=== PATIENT | female | born 1955 | race Caucasian/White ===

== ENCOUNTER 2023-10-18 09:08 | Emergency (ER) | payer MEDICARE, SELFPAY ==
[2023-10-18] VITALS (9 sets, daily range): BP systolic 122–126; BP diastolic 69–90; PULSE 71–94; RESP 14–22; TEMP 36.2; O2SAT 90–97; BMI 24.7
--- NOTE | 2023-10-18 09:36 | ED_ITS ---
HPI - General Adult General Time Seen by Provider: 09:36 Date Seen: 10/18/23 Chief complaint: Shortness of Breath/Dyspnea Stated complaint: Low O2 Time Seen by Provider: 10/18/23 09:11 Source: patient and RN notes reviewed Mode of arrival: ambulatory Limitations: no limitations History of Present Illness HPI narrative: This 68-year-old female with underlying COPD is referred to the ER by her primary provider Dr. Patel from [facility] where she was in for routine medication check-in found to be hypoxic. Her O2 sats were 88% at rest, with ambulation they went down to 80%. Patient reportedly feels her breathing has been worsening with shortness of breath for months. She did quit smoking in April of 2022 but admits she will occasionally have a cigarette. She is getting short of breath with limited activity. Denies any swelling in her legs but does state her legs will feel cold at times. They are not feeling cold now. Denies any numbness tingling in her legs. She has no chest pain, no palpitations. She is not coughing, does not feel ill, no fevers or chills. In review of her clinic note today, she has not been taking her pulmonary medications. She will use the Symbicort as a p.r.n. for wheezing, sometimes albuterol. She has not been using her Spiriva. She is aware now that she needs to use her Spiriva daily, the Symbicort scheduled twice a day and the albuterol as needed. No further workup was done in the clinic. I did discuss with her provider that we would not be able to set up home O2 out of the ER. She did fe el that the patient needed further evaluation that could not be provided in the clinic. Related Data Home Medications ?Medication ?Instructions ?Recorded ?Confirmed albuterol sulfate 90 mcg/actuation 2 puff inhalation QID PRN dyspnea 10/18/23 10/18/23 aerosol inhaler budesonide-formoterol HFA 160 2 puff inhalation BID 10/18/23 10/18/23 mcg-4.5 mcg/actuation aerosol inhaler (Symbicort) gabapentin 300 mg capsule 300 mg PO TID 10/18/23 10/18/23 mirtazapine 7.5 mg tablet 7.5 mg PO HS 10/18/23 10/18/23 tiotropium bromide 18 mcg capsule 1 cap inhalation DAILY 10/18/23 10/18/23 with inhalation device (Spiriva with HandiHaler) Allergies Allergy/AdvReac Type Severity Reaction Status Date / Time acetaminophen [From Vicodin] Allergy Verified 10/18/23 09:18 hydrocodone [From Vicodin] Allergy Verified 10/18/23 09:18 Review of Systems Status of ROS: Reports: 6 or more systems reviewed and unremarkable except as noted in History and below [facility] Medical History (Updated 10/18/23 @ 12:39 by Krysten Walls MD) Rheumatoid arthritis ?M06.9 - Rheumatoid arthritis, unspecified (ICD-10) Fibromyalgia ?M79.7 - Fibromyalgia (ICD-10) COPD (chronic obstructive pulmonary disease) ?J44.9 - Chronic obstructive pulmonary disease, unspecified (ICD-10) Social History Smoking Status: Never smoker How often do you have a drink containing alcohol: never AUDIT-C Alcohol total score: 0 Non-prescribed substance use: denies use Exam Const: Vital Signs, click to edit/add: Vital Signs - 24 hr 10/18/23 09:20 10/18/23 09:41 Temperature 97.1 F L Pulse Rate [Pulse Oximeter] 79 Respiratory Rate 22 Blood Pressure [Ri ght Upper Arm] 126/86 Pulse Oximetry 90 92 Oxygen Delivery Me thod Room Air Patient is a 68-year-old female that is alert, interactive, no apparent distress. Sclera clear, pupils equal and round. Able to speak in complete sentences, no dyspnea at rest. She is 90% at rest on arrival, does go up to 93- 95% on pulse oximetry while I am talking to her, has no oxygen on. She does dip down to 87% while I am in there but then does come back up. Again this is all at rest. Neck is supple, no jugular venous distension, no cervical adenopathy, no thyromegaly masses or nodules. Lungs have distant breath sounds, prolonged expiratory phase, no wheezing or crackles currently. CV regular rate and rhythm, do not hear any murmur, normal S1-S2, no S3-S4. Abdomen is soft, non tender, nondistended, do not feel any masses organomegaly. She has no lower extremity edema. Was ambulatory into the ER of her own accord. Documenting provider has reviewed patient's vital signs: yes Course Course ED Course: Patient is not hypoxic currently here. Her hypoxia is likely not acute, she is not currently ill. Will start with a two view chest x-ray, get appropriate labs and have her on pulse oximetry here. She has not been taking her pulmonary medicines appropriately, this could be contributing. We will do appropriate workup here but if patient is not hypoxic, will likely have to update her provider and come up with a close follow-up plan. Consideration for hospitalization as well with the reported hypoxia in clinic. Reevaluation(s) Time of Reevaluation #1: 11:13 Reevaluation #1: Have reviewed with Sarah that she needs a chest CT PE protocol. Her D-dimer is greater than 20. With ambulation, her O2 sats at best were 84%. She did not have any shortness of breath or pain with the hypoxia. It took her a while to recover with sitting on the edge of the bed to 90% with rest. Respiratory therapy will consult her. We do need to rule out pulmonary embolus at this time. Patient is likely going to need some home O2, is not likely going to be able to discharge to home at this time. Time of Reevaluation #2: 12:50 Reevaluation #2: Patient is refusing admission. Dr. Cutler has talked to the patient as well as her daughter. She does not seem to have any shortness of breath, is not short of breath when we ambulate her despite the lower oxygenation. We cannot get her set up for oxygen at this point. She needs to maximize her treatments for her COPD. Will have her follow up with her primary care outpatient. Consultations Consultation #1: Have reviewed with the hospitalist Dr. Hargrove. He will be accepting the patient. He is aware that the chest CT PE protocol needs to be done. Time: 11:21 Vital Signs Vital signs: Initial Vital Signs Temperature 97.1 F L 10/18/23 09:20 Temperature Source Temporal Artery Scan 10/18/23 09:20 Pulse Rate 79 10/18/23 09:20 Pulse Rhythm Regular 10/18/23 09:20 Respiratory Rate 22 10/18/23 09:20 Blood Pressure 126/86 10/18/23 09:20 Blood Pressure Mean 99 10/18/23 09:20 Blood Pressure Position Supine 10/18/23 09:20 Pulse Oximetry 90 05/24/24 09:20 Oxygen Delivery Method Room Air 10/18/23 09:20 Vital Signs Temperature 97.1 F L 10/18/23 09:20 Pulse Rate 79 10/18/23 09:20 Respiratory Rate 22 10/18/23 09:20 Blood Pressure 126/86 10/18/23 09:20 Pulse Oximetry 90 10/18/23 09:20 Oxygen Delivery Method Room Air 10/18/23 09:20 Temperature 97.1 F L 10/18/23 09:20 Pulse Rate 79 10/18/23 09:20 Respiratory Rate 22 10/18/23 09:20 Blood Pressure 126/86 10/18/23 09:20 Pulse Oximetry 92 10/18/23 09:41 Oxygen Delivery Method Room Air 10/18/23 09:20 Medical Decision Making Lab Data Lab results reviewed: Yes I reviewed the patient's lab results Labs: Lab Results 10/18/23 Range/Units 09:55 WBC 7.75 (4.50-11.00) K/uL RBC 4.41 (4.00-5.20) m/uL Hgb 12.4 (12.0-16.0) gm/dL Hct 39.5 (33.0-51.0) % MCV 90 (80-100) fL MCH 28 (26-34) pg MCHC 31 L (32-36) gm/dL RDW Coeff of Kaitlin 13.7 (11.5-15.5) % Plt Count 336 (140-440) K/uL Neut % (Auto) 61.2 (42.0-72.0) % Lymph % (Auto) 26.3 (20-44) % Gordon % (Auto) 9.4 (0.0-11.0) % Eos % (Auto) 2.6 (0.0-7.0) % Baso % (Auto) 0.5 (0.0-3.0) % Neut # (Auto) 4.74 (1.7-7.0) K/uL Lymph # (Auto) 2.04 (0.90-2.90) K/uL Gordon # (Auto) 0.70 (0.00-0.90) K/UL Eos # (Auto) 0.20 (0.00-0.50) K/uL Baso # (Auto) 0.04 (0.00-0.30) K/uL Abs Immat Gran (auto) 0.00 (0.00-0.30) K/uL Imm/Tot Granulo (auto) 0.0 % D-Dimer Quant (PE/DVT) > 20.00 H (0.00-0.50) ug/ml VBG pH 7.379 (7.32-7.43) VBG pCO2 46 (40-50) mmHG VBG pO2 < 30.1 (25-47) mmHG VBG HCO3 27 (21-28) mmol/L Sodium 140 (135-149) mmol/L Potassium 3.6 (3.6-5.1) mmol/L Chloride 107 (96-114) mmol/L Carbon Dioxide 27 (20-32) mmol/L Anion Gap 6 L (7-15) mEq/L BUN 22 (7-30) mg/dL Creatinine 0.7 (0.5-1.5) mg/dL Estimated Creat Clear 53.09 Estimated GFR 95 ml/min Glucose 100 (60-115) mg/dL Calcium 8.5 (8.4-10.6) mg/dL Total Bilirubin 1.0 (0.1-1.5) mg/dL AST 20 (12-35) U/L ALT 10 (4-35) U/L Alkaline Phosphatase 82 (40-150) U/L Troponin I < 0.01 L (0.01-0.04) ng/mL C-Reactive Protein 1.9 H (0.5-1.0) mg/dL NT-Pro-B Natriuret Pep 338 pg/mL Total Protein 7.9 (6.0-8.3) g/dL Albumin 4.2 (3.3-5.0) g/dL Procalcitonin 0.08 (<0.50) ng/mL Imaging Data CT scan - chest: Attestation: I have reviewed the pertinent imaging results. Radiologist's impression: Patient: SARAH PARDO Facility:?[facility] Patient ID:?[id number] Site Patient ID:?[id number]. Site :?[id number] Study:?CT-Chest Angio W/ 95CC ISOVUE-370 PE PROTOCOL-10/18/2023 11:49:41 AM Ordering Physician:Luis Antonio Bashir Final Report: Indication: Hypoxia, elevated D-dimer Technique: CT angiogram of the chest was performed for evaluation of pulmonary embolism. 95 mL of Isovue 370 intravenous contrast was administered. Comparison: Same day chest radiograph. Findings: CARDIOVASCULAR: Diagnostic quality: Contrast opacification of the pulmonary arterial circulation is adequate for assessment of pulmonary embolism. Study is not significantly limited by respiratory motion artifact. Pulmonary arteries: No filling defects to suggest pulmonary embolism. Enlarged, measuring 3.7 centimeter in diameter (4/84). Heart: No interventricular septal deviation. Normal in size. Mild coronary artery calcification. No significant valvular calcification. Pericardium: No pericardial effusion. Thoracic aorta: Mild calcification. Normal cervical branching. REMAINING CHEST: Medical devices: None. Thyroid: Normal. Lymph nodes: No supraclavicular, axillary, mediastinal, or hilar lymphadenopathy. Other mediastinal structures: No significant abnormality. Lung parenchyma: Moderate centrilobular emphysema. 5 millimeter medial right lower lobe pulmonary nodule (5/63). Airways: No significant abnormality. Pleura: No significant abnormality. Chest wall: No significant abnormality. Upper abdomen: Cholelithiasis. Musculoskeletal: Mild multilevel degenerative changes of the visualized spine. Impression: 1. No acute pulmonary embolism. 2. Enlarged main pulmonary artery, which may be seen in the setting of pulmonary hypertension. 3. 5 millimeter medial right lower lobe pulmonary nodule. Consensus guidelines for single or multiple solid lung nodules less than 6 mm, not applicable if known malignancy or immunocompromise: Low risk: No routine follow-up. High risk without suspicious morphology AND not in upper lobe: Consider CT at 12 months. High risk AND nodule(s) with suspicious morphology OR in upper lobe: Strongly consider CT at 12 months. (Devang, et al. Radiology 2017) Please note that all CT scans at this facility use dose modulation, iterative reconstruction, and/or weight-based dosing when appropriate to reduce radiation dose to as low as reasonably achievable. Dictated by Joshua Dunn MD @ 10/18/2023 12:26:27 PM (Electronic Signature) ECG Data Attestation: I personally reviewed and interpreted this ECG as follows: (Normal sinus rhythm, 70 beats per minute. Flipped T-waves V1 through V3 without any ST segment changes. No definite ischemia or infarct noted. QT corrected 480 milliseconds.) Prior ECG tracings: not available for review Discharge Plan Discharge Clinical Impression: Hypoxia COPD (chronic obstructive pulmonary disease) Qualifiers: COPD type: unspecified COPD Qualified Code(s): J44.9 - Chronic obstructive pulmonary disease, unspecified Patient Disposition: Home, Self-Care Condition: Stable Activity Level: Activity as Tolerated
--- NOTE | 2023-10-18 09:41 | CRLHL7_ITS ---
For Patients: As a result of the Century Cures Act, medical imaging exams and procedure reports are released immediately into your electronic medical record. You may view this report before your referring provider. If you have questions, please contact your health care provider. INDICATION: COPD, HYPOXIA TECHNIQUE: Chest 2 views. COMPARISON: None. FINDINGS: Cardiovascular and mediastinum: Heart size and vasculature are normal in caliber and appearance. Vascular calcifications. Lungs and pleural spaces: Hyperinflated lungs with interstitial lung markings likely related to COPD. Patchy right greater than left basilar opacities may represent atelectasis/scarring, or developing consolidation. No focal consolidation. No sign of pleural effusion. No pneumothorax. Bones and soft tissues: No significant findings. IMPRESSION: Findings of COPD with patchy right greater than left basilar opacities may represent atelectasis/scarring, or developing consolidation. Dictated by Baltazar Alves MD @ 10/18/2023 11:23:47 AM (Electronically Signed)
[2023-10-18 10:03] LABS: Basophils Absolute Auto 0.04 K/uL (0.00-0.30); Basophils Percent Auto 0.5 % (0.0-3.0); Eosinophils Percent Auto 2.6 % (0.0-7.0); Hematocrit 39.5 % (33.0-51.0); Hemoglobin* 12.4 gm/dL (12.0-16.0); Lymphocytes Absolute Auto 2.04 K/uL (0.90-2.90); Lymphocytes Percent Auto 26.3 % (20-44); Mean Corpuscular HGB Conc 31 gm/dL (32-36); Mean Corpuscular Hemoglobin 28 pg (26-34); Mean Corpuscular Volume 90 fL (80-100); Monocytes Percent Auto 9.4 % (0.0-11.0); Neutrophils Absolute Auto 4.74 K/uL (1.7-7.0); Neutrophils Percent Auto 61.2 % (42.0-72.0); Platelet Count* 336 K/uL (140-440); RDW Coefficient of Variation % 13.7 % (11.5-15.5); Red Blood Count 4.41 m/uL (4.00-5.20); White Blood Count* 7.75 K/uL (4.50-11.00)
[2023-10-18 10:04] LABS: HCO3 VBG 27 mmol/L (21-28); PCO2 VBG 46 mmHG (40-50); PO2 VBG < 30.1 mmHG (25-47); pH VBG 7.379 (7.32-7.43)
[2023-10-18 10:06] LABS: Slide Review Reflex No
[2023-10-18 10:22] LABS: Chloride* 107 mmol/L (96-114)
[2023-10-18 10:23] LABS: Albumin* 4.2 g/dL (3.3-5.0); Potassium* 3.6 mmol/L (3.6-5.1); Sodium* 140 mmol/L (135-149)
[2023-10-18 10:25] LABS: Creatinine* 0.7 mg/dL (0.5-1.5); Est. Creatinine Clearance* 53.09; Estimated Glomerular Filt Rate 95 ml/min
[2023-10-18 10:26] LABS: Alanine Aminotransferase* 10 U/L (4-35); Alkaline Phosphatase* 82 U/L (40-150); Anion Gap 6 mEq/L (7-15); Aspartate Amino Transferase* 20 U/L (12-35); Blood Urea Nitrogen* 22 mg/dL (7-30); Carbon Dioxide* 27 mmol/L (20-32); Glucose* 100 mg/dL (60-115); Total Protein* 7.9 g/dL (6.0-8.3)
[2023-10-18 10:27] LABS: Calcium* 8.5 mg/dL (8.4-10.6)
[2023-10-18 10:29] LABS: C Reactive Protein* 1.9 mg/dL (0.5-1.0)
[2023-10-18 10:43] LABS: Procalcitonin* 0.08 ng/mL (<0.50)
[2023-10-18 10:44] LABS: NT Pro B Type NatriureticPept* 338 pg/mL; Troponin I* < 0.01 ng/mL (0.01-0.04)
[2023-10-18 11:08] LABS: D Dimer Quantitative* > 20.00 ug/ml (0.00-0.50)
--- NOTE | 2023-10-18 11:12 | CRLHL7_ITS ---
For Patients: As a result of the Century Cures Act, medical imaging exams and procedure reports are released immediately into your electronic medical record. You may view this report before your referring provider. If you have questions, please contact your health care provider. Indication: Hypoxia, elevated D-dimer Technique: CT angiogram of the chest was performed for evaluation of pulmonary embolism. 95 mL of Isovue 370 intravenous contrast was administered. Comparison: Same day chest radiograph. Findings: CARDIOVASCULAR: Diagnostic quality: Contrast opacification of the pulmonary arterial circulation is adequate for assessment of pulmonary embolism. Study is not significantly limited by respiratory motion artifact. Pulmonary arteries: No filling defects to suggest pulmonary embolism. Enlarged, measuring 3.7 centimeter in diameter (4/84). Heart: No interventricular septal deviation. Normal in size. Mild coronary artery calcification. No significant valvular calcification. Pericardium: No pericardial effusion. Thoracic aorta: Mild calcification. Normal cervical branching. REMAINING CHEST: Medical devices: None. Thyroid: Normal. Lymph nodes: No supraclavicular, axillary, mediastinal, or hilar lymphadenopathy. Other mediastinal structures: No significant abnormality. Lung parenchyma: Moderate centrilobular emphysema. 5 millimeter medial right lower lobe pulmonary nodule (5/63). Airways: No significant abnormality. Pleura: No significant abnormality. Chest wall: No significant abnormality. Upper abdomen: Cholelithiasis. Musculoskeletal: Mild multilevel degenerative changes of the visualized spine. Impression: 1. No acute pulmonary embolism. 2. Enlarged main pulmonary artery, which may be seen in the setting of pulmonary hypertension. 3. 5 millimeter medial right lower lobe pulmonary nodule. Consensus guidelines for single or multiple solid lung nodules less than 6 mm, not applicable if known malignancy or immunocompromise: Low risk: No routine follow-up. High risk without suspicious morphology AND not in upper lobe: Consider CT at 12 months. High risk AND nodule(s) with suspicious morphology OR in upper lobe: Strongly consider CT at 12 months. (Devang, et al. Radiology 2017) Please note that all CT scans at this facility use dose modulation, iterative reconstruction, and/or weight-based dosing when appropriate to reduce radiation dose to as low as reasonably achievable. Dictated by Joshua Dunn MD @ 10/18/2023 12:26:27 PM (Electronically Signed)
--- NOTE | 2023-10-18 13:03 | P.IMCN_ITS ---
Date of Consult Patient: Dina Patient Consult date: 10/18/23 Requesting Physician: Other (Emergency department) Primary Care Provider: Fani Patel MD Consult Narrative Narrative: Sarah Gutiérrez is a 68 year old female with COPD who was seen in clinic this morning and referred to the emergency room because of hypoxia. Notes from the clinic indicate that she was having oxygen saturation of 80% on rest and dropped to 80% with ambulation. She presents the emergency room where she is 90-91% at rest and drops to 84% with activity. She reports otherwise feeling fine. She has not had recent illness, cold, cough, fever. She is using her inhalers, Spiriva and Symbicort as needed rather than scheduled. Evaluation in the emergency room was unremarkable except for a chest CTA which showed a 5 mm medial right lower lobe pulmonary nodule, emphysema, no pulmonary embolism, enlarged main pulmonary artery. I was called to see the patient for admission for hypoxia. When I saw the patient she declined admission to the hospital. She did say she was interested in getting supplemental oxygen but I explained to her that she would either have to be admitted to the hospital or talk to her Clinic DrAlexander. Supplemental oxygen could not be arranged through the emergency department. At the time I am seeing her her O2 sat is 91% on room air and she is breathing comfortably. I am not c ertain that she qualifies for oxygen norm I certain that she needs it if she is taking her COPD inhaler therapies as scheduled. She has declined admission and wants to return home. I also discussed this with her daughter. [facility] Medical History (Updated 10/18/23 @ 13:09 by Roberto Hargrove MD) Rheumatoid arthritis ?M06.9 - Rheumatoid arthritis, unspecified (ICD-10) Fibromyalgia ?M79.7 - Fibromyalgia (ICD-10) COPD (chronic obstructive pulmonary disease) ?J44.9 - Chronic obstructive pulmonary disease, unspecified (ICD-10) Social History Smoking Status: Never smoker How often do you have a drink containing alcohol: never AUDIT-C Alcohol total score: 0 Non-prescribed substance use: denies use Meds Home Medications and Allergies Home Medications ?Medication ?Instructions ?Recorded ?Confirmed ?Type albuterol sulfate 90 mcg/actuation 2 puff inhalation QID PRN dyspnea 10/18/23 10/18/23 History aerosol inhaler budesonide-formoterol HFA 160 2 puff inhalation BID 10/18/23 10/18/23 History mcg-4.5 mcg/actuation aerosol inhaler (Symbicort) gabapentin 300 mg capsule 300 mg PO TID 10/18/23 10/18/23 History mirtazapine 7.5 mg tablet 7.5 mg PO HS 10/18/23 10/18/23 History tiotropium bromide 18 mcg capsule 1 cap inhalation DAILY 10/18/23 10/18/23 History with inhalation device (Spiriva with HandiHaler) Allergies Allergy/AdvReac Type Severity Reaction Status Date / Time acetaminophen [From Vicodin] Allergy Verified 10/18/23 09:18 hydrocodone [From Vicodin] Allergy Verified 10/18/23 09:18 Exam Const: Vital Signs, click to edit/add: Vital Signs - 24 hr 10/18/23 09:20 10/18/23 09:32 10/18/23 09:41 Temperature 97.1 F L Pulse Rate 77 Pulse Rate [Pulse Oximeter] 79 Respiratory Rate 22 14 Blood Pressure 122/86 Blood Pressure [Ri ght Upper Arm] 126/86 Pulse Oximetry 90 92 92 Oxygen Delivery Me thod Room Air 10/18/23 10:02 10/18/23 11:15 10/18/23 11:32 Temperature Pulse Rate 77 77 71 Pulse Rate [Pulse Oximeter] Respiratory Rate 16 14 Blood Pressure 123/69 126/80 Blood Pressure [Ri ght Upper Arm] Pulse Oximetry 92 91 97 Oxygen Delivery Me thod 10/18/23 12:31 10/18/23 12:45 Temperature Pulse Rate 74 74 Pulse Rate [Pulse Oximeter] Respiratory Rate 14 Blood Pressure 124/90 H Blood Pressure [Ri ght Upper Arm] Pulse Oximetry 92 90 Oxygen Delivery Me thod Room Air Labs Labs: Short CBC 10/18/23 Range/Units 09:55 WBC 7.75 (4.50-11.00) K/uL Hgb 12.4 (12.0-16.0) gm/dL Hct 39.5 (33.0-51.0) % Plt Count 336 (140-440) K/uL BMP 10/18/23 09:55 Sodium 140 Potassium 3.6 Chloride 107 Carbon Dioxide 27 BUN 22 Creatinine 0.7 Glucose 100 Calcium 8.5 Cardiac Enzymes 05/24/24 Range/Units 09:55 Troponin I < 0.01 L (0.01-0.04) ng/mL Liver Function 10/18/23 Range/Units 09:55 Total Bilirubin 1.0 (0.1-1.5) mg/dL AST 20 (12-35) U/L ALT 10 (4-35) U/L Alkaline Phosphatase 82 (40-150) U/L Albumin 4.2 (3.3-5.0) g/dL Assessment and Plan Assessment and plan (1) COPD (chronic obstructive pulmonary disease): Problem comment: Moderately severe, stable Status: Acute (2) Hypoxia: Problem comment: Reassess hypoxia at outpatient follow-up and consider outpatient oxygen prescription if indicated Status: Acute Plan Patient will be discharged from the emergency department at her request for outpatient follow-up. Resume medications as prescribed by her doctor.. Total Time Spent Total Time Spent: 25 minutes spent in coordination of care and discussing with patient, her daughter and other providers management of hypoxia and COPD
== END 2023-10-18 13:12 | disposition home or self-care (01) ==
LOC: ED 12:39 → MEDSURG 12:50
PROVIDERS: Emergency Provider Family Medicine; PCP Family Medicine
DX: R09.02 Hypoxemia (principal); J44.9 Chronic obstructive pulmonary disease, unspecified
CPT/HCPCS: 36415; 71046; 71275; 80053; 82803; 83880; 84145; 84484; 85025; 85379; 86140; 93005; 94761; 99285; Q9967

== ENCOUNTER 2024-03-27 19:21 | Observation (INO) | payer MEDICARE, SELFPAY ==
[2024-03-27] VITALS (13 sets, daily range): BP systolic 111–135; BP diastolic 73–98; PULSE 88–110; RESP 16–24; TEMP 37.3; O2SAT 84–92; BMI 24.9; BMI 25.0
--- NOTE | 2024-03-27 19:37 | CRLHL7_ITS ---
For Patients: As a result of the Century Cures Act, medical imaging exams and procedure reports are released immediately into your electronic medical record. You may view this report before your referring provider. If you have questions, please contact your health care provider. INDICATION: Left-sided mallet the throat pain. Possible swelling. COMPARISON: None. TECHNIQUE: CT soft tissue neck with IV contrast. ICD 370, 90 cc. FINDINGS: Normal bilateral parotid and submandibular glands. Normal thyroid gland. Scattered small normal-sized cervical lymph nodes bilaterally. No supraclavicular or superior mediastinal adenopathy. Nasopharynx and oropharynx are clear. No inflammation within the parapharyngeal fat pads or retropharyngeal space. Normal thickness of the epiglottis. Normal glottis was symmetric vocal cords. Emphysematous changes in the upper lungs. Normal alignment of the cervical spine. No prevertebral soft tissue swelling. Edentulous mandible and maxilla. Normal articulation at the bilateral temporomandibular joints with moderate degenerative changes. Normal orbits bilaterally. Fluid mucosal thickening of the left sphenoid sinus. Remaining visualized paranasal sinuses mastoid air cells are clear. IMPRESSION: 1. No adenopathy. 2. Normal deep soft tissues of the neck. 3. Emphysematous changes in the upper lungs. 4. Moderate degenerative at the bilateral temporomandibular joints Please note that all CT scans at this facility use dose modulation, iterative reconstruction, and/or weight-based dosing when appropriate to reduce radiation dose to as low as reasonably achievable. Dictated by Andres Tang MD @ 03/27/2024 8:17:35 PM (Electronically Signed)
--- NOTE | 2024-03-27 19:40 | ED.GENADULT ---
HPI - General Adult General Date Seen: 03/27/24 <Janusz Vallecillo - Last Filed: 03/27/24 21:02> Chief complaint: Allergic Reaction <Janusz Hensleyram DO - Last Filed: 03/27/24 21:02> Stated complaint: allergic reaction, worried throat will swell shut <Janusz Vallecillo - Last Filed: 03/27/24 21:02> Time Seen by Provider: 03/27/24 19:23 <Janusz Vallecillo DO - Last Filed: 03/27/24 21:02> Source: patient <Janusz Vallecillo - Last Filed: 03/27/24 21:02> Mode of arrival: ambulatory <Janusz Vallecillo - Last Filed: 03/27/24 21:02> Limitations: no limitations <Janusz Vallecillo - Last Filed: 03/27/24 21:02> History of Present Illness HPI narrative: Patient is a 68-year-old female with a history of rheumatoid arthritis and COPD presenting to emergency department with her daughter for concerns of allergic reaction. Two days ago she took methotrexate, vitamin-D and folic acid for the 1st time for rheumatoid arthritis. States she started having sensation of tongue swelling last night. She states feels like she can not move her tongue to the left but does also state part of that is because she has having pain to left side of her jaw and hurts when she moves her tongue that way. Her daughter thinks the patient's voice sounds different. She does have a petechial appearing rash on her neck and chin that her daughter states was not there yesterday. Patient was not aware of it. She denies chest pain or any worsening shortness of breath. She has a COPD patient. Has been able to swallow but does state it hurts when she swallows. Went to urgent care initially and then was told to come to emergency department for evaluation. Denies fevers, chills, weakness, lightheadedness, dizziness, abdominal pain, chest pain, shortness of breath. No other concerns noted at this time. Denies symptoms like this previously. Has not noticed any swelling below her tongue. <Janusz Vallecillo DO - Last Filed: 03/27/24 21:02> Related Data Home medications: Home Medications ?Medication ?Instructions ?Recorded ?Confirmed albuterol sulfate 90 mcg/actuation 2 puff inhalation QID PRN dyspnea 10/18/23 03/27/24 aerosol inhaler budesonide-formoterol HFA 160 2 puff inhalation BID 10/18/23 03/27/24 mcg-4.5 mcg/actuation aerosol inhaler (Symbicort) gabapentin 300 mg capsule 300 mg PO TID 10/18/23 03/27/24 mirtazapine 7.5 mg tablet 15 mg PO HS 10/18/23 03/27/24 tiotropium bromide 18 mcg capsule 1 cap inhalation DAILY 10/18/23 03/27/24 with inhalation device (Spiriva with HandiHaler) cholecalciferol (vitamin D3) 1,250 1,250 mcg PO .weekly 03/27/24 03/27/24 mcg (50,000 unit) capsule folic acid 1 mg tablet 1 mg PO DAILY 03/27/24 03/27/24 methotrexate sodium 2.5 mg tablet 15 mg PO .weekly 03/27/24 03/27/24 <Janusz Vallecillo DO - Last Filed: 03/27/24 21:02> Allergies/adverse reactions: Allergies Allergy/AdvReac Type Severity Reaction Status Date / Time hydrocodone (From Vicodin) Allergy Verified 03/27/24 19:56 <Janusz Vallecillo DO - Last Filed: 03/27/24 21:02> Review of Systems Status of ROS: Reports: 10 or more systems reviewed and unremarkable except as noted in History and below <Janusz Vallecillo DO - Last Filed: 03/27/24 21:02> [facility] Medical History: Medical History Rheumatoid arthritis ?M06.9 - Rheumatoid arthritis, unspecified (ICD-10) Fibromyalgia ?M79.7 - Fibromyalgia (ICD-10) COPD (chronic obstructive pulmonary disease) ?J44.9 - Chronic obstructive pulmonary disease, unspecified (ICD-10) <Janusz Vallecillo DO - Last Filed: 03/27/24 21:02> Social History: Social History Smoking Status: Never smoker Second hand tobacco smoke exposure: No How often do you have a drink containing alcohol: never AUDIT-C Alcohol total score: 0 Non-prescribed substance use: denies use <Janusz Vallecillo DO - Last Filed: 03/27/24 21:02> Exam Narrative: Exam Narrative: Const: Well-nourished, Well-developed, in mild distress Eyes: PERRL, no conjunctival injection, and symmetrical lids HENT: Atraumatic external nose and ears. Moist mucous membranes. Tenderness noted to the mucosal membrane her mouth just anterior to where tooth 22 would be. No tenderness to the teeth or gum line though. No swelling noted underneath her tongue. Does. If erythematous oropharynx. Tonsils were not adequately visualize but uvula is midline Neck: Symmetric, trachea midline, No thyromegaly. CVS: RRR, No murmurs or gallops. Peripheral pulses 2+ and equal in all extremities RESP: Unlabored respiratory effort. Clear to auscultation bilaterally. GI: Nontender/Nondistended, No rebound or guarding. MSK:Extremities w/o deformity, Normal Active ROM Skin: Petechial rash noted to chin and neck worse on the right side Neuro: Normal Muscle tone, No focal neurological deficits. Psych: Awake, Alert, & Oriented x3. Appropriate mood and affect. <Janusz Vallecillo DO - Last Filed: 03/27/24 21:02> Const: Vital Signs, click to edit/add: Vital Signs - 24 hr 03/27/24 19:29 03/27/24 20:06 03/27/24 20:31 Temperature 99.2 F Pulse Rate 110 H 98 Pulse Rate [Pulse Oximeter] 99 Respiratory Rate 20 20 18 Blood Pressure 135/98 H 112/73 Blood Pressure [Le ft Upper Arm] 131/82 Pulse Oximetry 90 89 87 L Oxygen Delivery Me thod Room Air Oxygen Flow Rate 03/27/24 20:45 03/27/24 20:53 03/27/24 21:09 Temperature Pulse Rate 98 100 Pulse Rate [Pulse Oximeter] Respiratory Rate 18 Blood Pressure Blood Pressure [Le ft Upper Arm] Pulse Oximetry 84 L 91 90 Oxygen Delivery Me thod Room Air Nasal Cannula Oxygen Flow Rate 1 03/27/24 21:15 03/27/24 21:22 Temperature Pulse Rate 101 H Pulse Rate [Pulse Oximeter] Respiratory Rate Blood Pressure Blood Pressure [Le ft Upper Arm] Pulse Oximetry 87 L 90 Oxygen Delivery Me thod Nasal Cannula Oxygen Flow Rate 1 <Janusz Vallecillo DO - Last Filed: 03/27/24 21:02> Vital Signs, click to edit/add: Vital Signs - 24 hr 03/27/24 19:29 03/27/24 20:06 03/27/24 20:31 Temperature 99.2 F Pulse Rate 110 H 98 Pulse Rate [Pulse Oximeter] 99 Respiratory Rate 20 20 18 Blood Pressure 135/98 H 112/73 Blood Pressure [Le ft Upper Arm] 131/82 Pulse Oximetry 90 89 87 L Oxygen Delivery Me thod Room Air Oxygen Flow Rate 03/27/24 20:45 03/27/24 20:53 03/27/24 21:09 Temperature Pulse Rate 98 100 Pulse Rate [Pulse Oximeter] Respiratory Rate 18 Blood Pressure Blood Pressure [Le ft Upper Arm] Pulse Oximetry 84 L 91 90 Oxygen Delivery Me thod Room Air Nasal Cannula Oxygen Flow Rate 1 03/27/24 21:15 03/27/24 21:22 Temperature Pulse Rate 101 H Pulse Rate [Pulse Oximeter] Respiratory Rate Blood Pressure Blood Pressure [Le ft Upper Arm] Pulse Oximetry 87 L 90 Oxygen Delivery Me thod Nasal Cannula Oxygen Flow Rate 1 <Krysten Walls MD - Last Filed: 03/27/24 21:40> Course Consultations Consultation #1: I have called Dr. Zapata to let him know that the VBG and chest CT have been read. He will follow-up all findings on the chest CT with patient, we did review the venous blood gas. Did review that she is 90% on 1 L nasal cannula oxygen. I was asked by my partner before he left to just make sure the hospitalist was aware when these tests were back which has been done. <Krysten Walls MD - Last Filed: 03/27/24 21:40> Time: 21:39 <Krysten Walls MD - Last Filed: 03/27/24 21:40> Vital Signs Vital signs: Initial Vital Signs Temperature 99.2 F 03/27/24 19:29 Temperature Source Temporal Artery Scan 03/27/24 19:29 Pulse Rate 99 03/27/24 19:29 Respiratory Rate 20 03/27/24 19:29 Blood Pressure 131/82 03/27/24 19:29 Blood Pressure Mean 98 03/27/24 19:29 Blood Pressure Position Sitting 03/27/24 19:29 Pulse Oximetry 90 03/27/24 19:29 Oxygen Delivery Method Room Air 03/27/24 19:29 Vital Signs Temperature 99.2 F 03/27/24 19:29 Pulse Rate 99 03/27/24 19:29 Respiratory Rate 20 03/27/24 19:29 Blood Pressure 131/82 03/27/24 19:29 Pulse Oximetry 90 03/27/24 19:29 Oxygen Delivery Method Room Air 03/27/24 19:29 Temperature 99.2 F 03/27/24 19:29 Pulse Rate 101 H 03/27/24 21:15 Respiratory Rate 18 03/27/24 20:45 Blood Pressure 112/73 03/27/24 20:31 Pulse Oximetry 90 03/27/24 21:22 Oxygen Delivery Method Nasal Cannula 03/27/24 21:22 Oxygen Flow Rate 1 03/27/24 21:22 <Janusz Vallecillo, DO - Last Filed: 03/27/24 21:02> Initial Vital Signs Temperature 99.2 F 03/27/24 19:29 Temperature Source Temporal Artery Scan 03/27/24 19:29 Pulse Rate 99 03/27/24 19:29 Respiratory Rate 20 03/27/24 19:29 Blood Pressure 131/82 03/27/24 19:29 Blood Pressure Mean 98 03/27/24 19:29 Blood Pressure Position Sitting 03/27/24 19:29 Pulse Oximetry 90 03/27/24 19:29 Oxygen Delivery Method Room Air 03/27/24 19:29 Vital Signs Temperature 99.2 F 03/27/24 19:29 Pulse Rate 99 03/27/24 19:29 Respiratory Rate 20 03/27/24 19:29 Blood Pressure 131/82 03/27/24 19:29 Pulse Oximetry 90 03/27/24 19:29 Oxygen Delivery Method Room Air 03/27/24 19:29 Temperature 99.2 F 03/27/24 19:29 Pulse Rate 101 H 03/27/24 21:15 Respiratory Rate 18 03/27/24 20:45 Blood Pressure 112/73 03/27/24 20:31 Pulse Oximetry 90 03/27/24 21:22 Oxygen Delivery Method Nasal Cannula 03/27/24 21:22 Oxygen Flow Rate 1 03/27/24 21:22 <Krysten Walls MD - Last Filed: 03/27/24 21:40> Medications Administered Medications: Discontinued Medications Generic Name Dose Route Start Last Admin Trade Name Freq PRN Reason Stop Dose Admin Epinephrine HCl 0.3 mg 03/27/24 19:37 03/27/24 19:45 Epinephrine 0.3 Mg Pen IM 03/27/24 19:38 0.3 mg ONCE ONE Administration Methylprednisolone Sodium Succinate 125 mg 03/27/24 19:37 03/27/24 19:45 Methylprednisolone Sod Succ 62.5 Mg/Ml (125) IVP 03/27/24 19:38 125 mg ONCE ONE Administration <Janusz Vallecillo DO - Last Filed: 03/27/24 21:02> Discontinued Medications Generic Name Dose Route Start Last Admin Trade Name Freq PRN Reason Stop Dose Admin Epinephrine HCl 0.3 mg 03/27/24 19:37 03/27/24 19:45 Epinephrine 0.3 Mg Pen IM 03/27/24 19:38 0.3 mg ONCE ONE Administration Methylprednisolone Sodium Succinate 125 mg 03/27/24 19:37 03/27/24 19:45 Methylprednisolone Sod Succ 62.5 Mg/Ml (125) IVP 03/27/24 19:38 125 mg ONCE ONE Administration <Krysten Walls MD - Last Filed: 03/27/24 21:40> Medical Decision Making MDM Narrative Medical decision making narrative: Patient is a 68-year-old female presenting for concerns of an allergic reaction. She has no family history of angioedema so her auditory angioedema seems less likely. Also do not even notice any swelling in her oropharynx so overall medication induced angioedema does not seem likely. It is not clear she is having allergic reaction this time as when I ask her work tongue swelling she states she thinks swollen because she can not move it to left also states that she does not move it to the left because the inside of her mouth hurts when she moves her tongue and touches it. She also has a rash on her face but this rash is petechial no urticaria. Symptoms are not really consistent with a allergic reaction at this time but I will give her epi and Solu-Medrol just in case. Nose do a COVID/flu/RSV swab as her oropharynx is erythematous and I will also do a strep swab. I do not see any obvious lesions on the inside of her mouth or signs of prostatitis or salivary stones live will do CT scan just to rule out any other abnormality says she does have a hoarse voice right now. Lab work returned showing no concerning abnormalities. CT scan reviewed myself the radiologist shows no acute concerning abnormalities. There is no signs of deep neck space issues. No signs of swelling of the larynx or airway compromise. Patient had no improvement in her symptoms with the epi and Solu-Medrol. Her symptoms all seem much more consistent with a viral pharyngitis than any kind of allergic reaction. Will continue to monitor while we wait for the COVID and strep swab to return though. Power of monitoring the patient she became hypoxic about 83. Dizzy to her long he did have poor air movements. She states she feels like she is at her baseline. I did have her use her home Symbicort which she states she uses frequently and I will order a chest CT to make sure were not missing any possible pneumonia. Symbicort do not seem to improve her symptoms at all. While we wait for CT scan I did speak to the hospitalist who would like to see the CT scan results and the blood gas before admission. <Janusz Vallecillo, - Last Filed: 03/27/24 21:02> Lab Data Labs: Lab Results 03/27/24 03/27/24 03/27/24 Range/Units 19:40 19:45 20:07 WBC 10.94 (4.50-11.00) K/uL RBC 4.49 (4.00-5.20) m/uL Hgb 12.4 (12.0-16.0) gm/dL Hct 40.1 (33.0-51.0) % MCV 89 (80-100) fL MCH 28 (26-34) pg MCHC 31 L (32-36) gm/dL RDW Coeff of Kaitlin 14.5 (11.5-15.5) % Plt Count 300 (140-440) K/uL Neut % (Auto) 79.6 H (42.0-72.0) % Lymph % (Auto) 14.2 L (20-44) % [place] % (Auto) 4.9 (0.0-11.0) % Eos % (Auto) 0.8 (0.0-7.0) % Baso % (Auto) 0.4 (0.0-3.0) % Neut # (Auto) 8.70 H (1.7-7.0) K/uL Lymph # (Auto) 1.60 (0.90-2.90) K/uL [place] # (Auto) 0.50 (0.00-0.90) K/UL Eos # (Auto) 0.09 (0.00-0.50) K/uL Baso # (Auto) 0.04 (0.00-0.30) K/uL Abs Immat Gran (auto) 0.01 (0.00-0.30) K/uL Imm/Tot Granulo (auto) 0.1 % VBG pH (7.32-7.43) VBG pCO2 (40-50) mmHG VBG pO2 (25-47) mmHG VBG HCO3 (21-28) mmol/L Sodium 135 (135-149) mmol/L Potassium 3.4 L (3.6-5.1) mmol/L Chloride 103 (96-114) mmol/L Carbon Dioxide 23 (20-32) mmol/L Anion Gap 9 (7-15) mEq/L BUN 16 (7-30) mg/dL Creatinine 0.7 (0.5-1.5) mg/dL Estimated Creat Clear 55.07 Estimated GFR 95 ml/min Glucose 110 (60-115) mg/dL Calcium 8.7 (8.4-10.6) mg/dL Magnesium 1.9 (1.5-2.6) mg/dL SARS-CoV-2 (PCR) Negative SARS-CoV-2 (Negative) Influenza Type A (PCR) Negative PCR FLU A (Negative) Influenza Type B (PCR) Negative PCR FLU B (Negative) RSV (PCR) Negative PCR RSV (Negative) Group A Strep DNA NOT DETECTED (Not Detectd) Lab Acknowledgement POC Creatinine 0.7 (0.6-1.3) mg/dl POC Troponin I 0.00 L (0.01-0.04) ng/ml 03/27/24 03/27/24 Range/Units 20:59 21:16 WBC (4.50-11.00) K/uL RBC (4.00-5.20) m/uL Hgb (12.0-16.0) gm/dL Hct (33.0-51.0) % MCV (80-100) fL MCH (26-34) pg MCHC (32-36) gm/dL RDW Coeff of Kaitlin (11.5-15.5) % Plt Count (140-440) K/uL Neut % (Auto) (42.0-72.0) % Lymph % (Auto) (20-44) % [place] % (Auto) (0.0-11.0) % Eos % (Auto) (0.0-7.0) % Baso % (Auto) (0.0-3.0) % Neut # (Auto) (1.7-7.0) K/uL Lymph # (Auto) (0.90-2.90) K/uL [place] # (Auto) (0.00-0.90) K/UL Eos # (Auto) (0.00-0.50) K/uL Baso # (Auto) (0.00-0.30) K/uL Abs Immat Gran (auto) (0.00-0.30) K/uL Imm/Tot Granulo (auto) % VBG pH 7.447 H (7.32-7.43) VBG pCO2 34 L (40-50) mmHG VBG pO2 44.9 (25-47) mmHG VBG HCO3 23 (21-28) mmol/L Sodium (135-149) mmol/L Potassium (3.6-5.1) mmol/L Chloride (96-114) mmol/L Carbon Dioxide (20-32) mmol/L Anion Gap (7-15) mEq/L BUN (7-30) mg/dL Creatinine (0.5-1.5) mg/dL Estimated Creat Clear Estimated GFR ml/min Glucose (60-115) mg/dL Calcium (8.4-10.6) mg/dL Magnesium (1.5-2.6) mg/dL SARS-CoV-2 (PCR) (Negative) Influenza Type A (PCR) (Negative) Influenza Type B (PCR) (Negative) RSV (PCR) (Negative) Group A Strep DNA (Not Detectd) Lab Acknowledgement New Spec Needed POC Creatinine (0.6-1.3) mg/dl POC Troponin I (0.01-0.04) ng/ml <Janusz Broderick Vallecillo, DO - Last Filed: 03/27/24 21:02> Lab Results 03/27/24 03/27/24 03/27/24 Range/Units 19:40 19:45 20:07 WBC 10.94 (4.50-11.00) K/uL RBC 4.49 (4.00-5.20) m/uL Hgb 12.4 (12.0-16.0) gm/dL Hct 40.1 (33.0-51.0) % MCV 89 (80-100) fL MCH 28 (26-34) pg MCHC 31 L (32-36) gm/dL RDW Coeff of Kaitlin 14.5 (11.5-15.5) % Plt Count 300 (140-440) K/uL Neut % (Auto) 79.6 H (42.0-72.0) % Lymph % (Auto) 14.2 L (20-44) % [place] % (Auto) 4.9 (0.0-11.0) % Eos % (Auto) 0.8 (0.0-7.0) % Baso % (Auto) 0.4 (0.0-3.0) % Neut # (Auto) 8.70 H (1.7-7.0) K/uL Lymph # (Auto) 1.60 (0.90-2.90) K/uL [place] # (Auto) 0.50 (0.00-0.90) K/UL Eos # (Auto) 0.09 (0.00-0.50) K/uL Baso # (Auto) 0.04 (0.00-0.30) K/uL Abs Immat Gran (auto) 0.01 (0.00-0.30) K/uL Imm/Tot Granulo (auto) 0.1 % VBG pH (7.32-7.43) VBG pCO2 (40-50) mmHG VBG pO2 (25-47) mmHG VBG HCO3 (21-28) mmol/L Sodium 135 (135-149) mmol/L Potassium 3.4 L (3.6-5.1) mmol/L Chloride 103 (96-114) mmol/L Carbon Dioxide 23 (20-32) mmol/L Anion Gap 9 (7-15) mEq/L BUN 16 (7-30) mg/dL Creatinine 0.7 (0.5-1.5) mg/dL Estimated Creat Clear 55.07 Estimated GFR 95 ml/min Glucose 110 (60-115) mg/dL Calcium 8.7 (8.4-10.6) mg/dL Magnesium 1.9 (1.5-2.6) mg/dL SARS-CoV-2 (PCR) Negative SARS-CoV-2 (Negative) Influenza Type A (PCR) Negative PCR FLU A (Negative) Influenza Type B (PCR) Negative PCR FLU B (Negative) RSV (PCR) Negative PCR RSV (Negative) Group A Strep DNA NOT DETECTED (Not Detectd) Lab Acknowledgement POC Creatinine 0.7 (0.6-1.3) mg/dl POC Troponin I 0.00 L (0.01-0.04) ng/ml 03/27/24 03/27/24 Range/Units 20:59 21:16 WBC (4.50-11.00) K/uL RBC (4.00-5.20) m/uL Hgb (12.0-16.0) gm/dL Hct (33.0-51.0) % MCV (80-100) fL MCH (26-34) pg MCHC (32-36) gm/dL RDW Coeff of Kaitlin (11.5-15.5) % Plt Count (140-440) K/uL Neut % (Auto) (42.0-72.0) % Lymph % (Auto) (20-44) % [place] % (Auto) (0.0-11.0) % Eos % (Auto) (0.0-7.0) % Baso % (Auto) (0.0-3.0) % Neut # (Auto) (1.7-7.0) K/uL Lymph # (Auto) (0.90-2.90) K/uL [place] # (Auto) (0.00-0.90) K/UL Eos # (Auto) (0.00-0.50) K/uL Baso # (Auto) (0.00-0.30) K/uL Abs Immat Gran (auto) (0.00-0.30) K/uL Imm/Tot Granulo (auto) % VBG pH 7.447 H (7.32-7.43) VBG pCO2 34 L (40-50) mmHG VBG pO2 44.9 (25-47) mmHG VBG HCO3 23 (21-28) mmol/L Sodium (135-149) mmol/L Potassium (3.6-5.1) mmol/L Chloride (96-114) mmol/L Carbon Dioxide (20-32) mmol/L Anion Gap (7-15) mEq/L BUN (7-30) mg/dL Creatinine (0.5-1.5) mg/dL Estimated Creat Clear Estimated GFR ml/min Glucose (60-115) mg/dL Calcium (8.4-10.6) mg/dL Magnesium (1.5-2.6) mg/dL SARS-CoV-2 (PCR) (Negative) Influenza Type A (PCR) (Negative) Influenza Type B (PCR) (Negative) RSV (PCR) (Negative) Group A Strep DNA (Not Detectd) Lab Acknowledgement New Spec Needed POC Creatinine (0.6-1.3) mg/dl POC Troponin I (0.01-0.04) ng/ml <Krysten Walls MD - Last Filed: 03/27/24 21:40> ECG Data Attestation: I personally reviewed and interpreted this ECG as follows: <Janusz Vallecillo DO - Last Filed: 03/27/24 21:02> Prior ECG tracings: available for review <Janusz Vallecillo DO - Last Filed: 03/27/24 21:02> Interpretation: Normal sinus rhythm with a first-degree AV block. No ST or T-wave abnormalities. Normal axis, normal intervals. Appears similar previous EKG on file. Of note there is few areas of notable artifact so it is hard to definitively read the EKG. <Janusz Vallecillo DO - Last Filed: 03/27/24 21:02> Discharge Plan Discharge Clinical Impression: Hypoxia Pharyngitis Qualifiers: Pharyngitis/tonsillitis etiology: unspecified etiology Qualified Code(s): J02.9 - Acute pharyngitis, unspecified COPD (chronic obstructive pulmonary disease) Qualifiers: COPD type: unspecified COPD Qualified Code(s): J44.9 - Chronic obstructive pulmonary disease, unspecified <Janusz Vallecillo DO - Last Filed: 03/27/24 21:02> Patient Disposition: Admitted As Observation <Janusz Vallecillo DO - Last Filed: 03/27/24 21:02> Condition: Stable <Janusz Vallecillo DO - Last Filed: 03/27/24 21:02>
[2024-03-27] MEDS: METHYLPREDNISOLONE SOD SUCC 62.5 MG/ML (125) 125 MG IVP (19:45)
[2024-03-27] MEDS: EPINEPHrine 0.3 MG PEN IM (19:45)
[2024-03-27 19:51] LABS: Creatinine, Point-of-Care* 0.7 mg/dl (0.6-1.3)
[2024-03-27 19:57] LABS: Basophils Absolute Auto 0.04 K/uL (0.00-0.30); Basophils Percent Auto 0.4 % (0.0-3.0); Eosinophils Absolute Auto 0.09 K/uL (0.00-0.50); Eosinophils Percent Auto 0.8 % (0.0-7.0); Hematocrit 40.1 % (33.0-51.0); Hemoglobin* 12.4 gm/dL (12.0-16.0); Immature Granulocytes Abs Auto 0.01 K/uL (0.00-0.30); Immature Granulocytes Pct Auto 0.1 %; Lymphocytes Percent Auto 14.2 % (20-44); Mean Corpuscular HGB Conc 31 gm/dL (32-36); Mean Corpuscular Hemoglobin 28 pg (26-34); Mean Corpuscular Volume 89 fL (80-100); Monocytes Percent Auto 4.9 % (0.0-11.0); Neutrophils Percent Auto 79.6 % (42.0-72.0); Platelet Count* 300 K/uL (140-440); RDW Coefficient of Variation % 14.5 % (11.5-15.5); Red Blood Count 4.49 m/uL (4.00-5.20); White Blood Count* 10.94 K/uL (4.50-11.00)
[2024-03-27 19:58] LABS: Slide Review Reflex No
[2024-03-27 20:09] LABS: Chloride* 103 mmol/L (96-114); Potassium* 3.4 mmol/L (3.6-5.1); Sodium* 135 mmol/L (135-149)
[2024-03-27 20:12] LABS: Creatinine* 0.7 mg/dL (0.5-1.5); Est. Creatinine Clearance* 55.07; Estimated Glomerular Filt Rate 95 ml/min
[2024-03-27 20:13] LABS: Anion Gap 9 mEq/L (7-15); Blood Urea Nitrogen* 16 mg/dL (7-30); Calcium* 8.7 mg/dL (8.4-10.6); Carbon Dioxide* 23 mmol/L (20-32); Glucose* 110 mg/dL (60-115); Magnesium* 1.9 mg/dL (1.5-2.6)
[2024-03-27 20:39] LABS: Strep A DNA Probe* NOT DETECTED (Not Detectd)
--- NOTE | 2024-03-27 20:49 | CRLHL7_ITS ---
For Patients: As a result of the Century Cures Act, medical imaging exams and procedure reports are released immediately into your electronic medical record. You may view this report before your referring provider. If you have questions, please contact your health care provider. INDICATION: Hypoxic. TECHNIQUE: CT of the chest without IV contrast. Coronal and sagittal reconstructions. COMPARISON: CT chest 10/18/2023. FINDINGS: Cardiovascular structures: Normal heart size. The ascending thoracic aorta measures 3.9 cm in AP dimension. The main pulmonary artery is enlarged measuring 3.6 cm which can be seen with pulmonary hypertension. Coronary artery and aortic vascular calcifications. Mediastinum and michael: No pathologically enlarged lymph nodes. No pericardial effusion. Lungs and pleura: Advanced upper lung predominant emphysema. No focal consolidation, pleural effusion, or pneumothorax. Linear atelectasis or scarring in the lung bases. Stable 5 mm noncalcified pulmonary nodule in the posteromedial right upper lobe (series 3, image 31). Stable 3 mm noncalcified pulmonary nodule in the left lower lobe (image 52). No central endobronchial lesion or significant bronchial wall thickening. Chest wall: No mass or adenopathy. Upper abdomen: Residual nephrograms and excreted contrast in the renal collecting systems related to prior CT. Small bilateral renal cysts. There is a 1.3 cm hyperdense lesion arising from the upper pole of the right kidney. Remainder unremarkable. Bones: Mild degenerative changes of the spine. Old bilateral rib fractures. IMPRESSION: 1. Advanced emphysema. No focal lung infiltrates. 2. Stable noncalcified pulmonary nodules measuring up to 5 mm. Please see follow-up guidelines below. 3. Enlarged main pulmonary artery which can be seen with pulmonary hypertension. 4. Small indeterminate hyperdense lesion arising from the right kidney. Recommend further evaluation with nonemergent renal ultrasound. [employer] GUID[employer]INES - SOLID NODULES: : MULTIPLE LOW RISK - nodule less than 6 mm: No routine follow-up. - nodule 6-8 mm: CT at 3-6 months, then consider CT at 18-24 months. - nodule greater than 8 mm: CT at 3-6 months, then consider CT at 18-24 months. MULTIPLE HIGH RISK - nodule less than 6 mm: Optional CT at 12 months. - nodule 6-8 mm: CT at 3-6 months, then at 18-24 months. - nodule greater than 8 mm: CT at 3-6 months, then at 18-24 months. Please note that all CT scans at this facility use dose modulation, iterative reconstruction, and/or weight-based dosing when appropriate to reduce radiation dose to as low as reasonably achievable. Dictated by Yesenia Lombardo MD @ 03/27/2024 9:33:03 PM (Electronically Signed)
[2024-03-27 20:53] LABS: PCR FLU A Negative PCR FLU A (Negative); PCR FLU B Negative PCR FLU B (Negative); PCR RSV Negative PCR RSV (Negative); SARS PCR* Negative SARS-CoV-2 (Negative)
[2024-03-27 21:03] LABS: Lab Add On Test New Spec Needed
[2024-03-27 21:18] LABS: HCO3 VBG 23 mmol/L (21-28); PCO2 VBG 34 mmHG (40-50); PO2 VBG 44.9 mmHG (25-47); pH VBG 7.447 (7.32-7.43)
--- NOTE | 2024-03-27 22:50 | P.IMHP_ITS ---
Hospitalist- H&P: HPI History of Present Illness Date Seen: 03/27/24 Chief complaint: allergic reaction, worried throat will swell shut Narrative: Sarah Gutiérrez is a 68 year old woman presents to the emergency department accompanied by her daughter with concern of possible allergic reaction. Couple of days ago patient started methotrexate for the 1st time to treat underlying rheumatoid arthritis. Last night she felt her tongue was swollen and sore. Denies swelling of lips or any other rashes. Does note mild oropharyngeal dysphagia. Denies fevers, rigors, diaphoresis. No recent trauma or injury. Does use corticosteroid meter dose inhaler and does not use an sales service executive with this, and nor does she rinse her mouth after administration. Workup in the emergency department negative for COVID, influenza, strep. CT scan of soft tissue of neck unremarkable save advanced emphysematous changes noted in radiographic cuts of the lung. While in the emergency department patient's resting room air oxygen saturations were around 84%. Resting saturations improved 91% on 1 L of oxygen per minute via nasal cannula continuously. Review of Systems Status of ROS: Reports: 6 or more systems reviewed and unremarkable except as noted in History and below [facility] Medical History Chronic pain syndrome ?G89.4 - Chronic pain syndrome (ICD-10) Cervical high risk HPV (human papillomavirus) test positive ?R87.810 - Cervical high risk human papillomavirus (HPV) DNA test positive (ICD-10) Osteoporosis ?M81.0 - Age-related osteoporosis without current pathological fracture (ICD- 10) History of traumatic brain injury ?Z87.820 - Personal history of traumatic brain injury (ICD-10) Tobacco use disorder ?F17.200 - Nicotine dependence, unspecified, uncomplicated (ICD-10) Emphysema/COPD ?J43.9 - Emphysema, unspecified (ICD-10) Rheumatoid arthritis ?M06.9 - Rheumatoid arthritis, unspecified (ICD-10) Fibromyalgia ?M79.7 - Fibromyalgia (ICD-10) COPD (chronic obstructive pulmonary disease) ?J44.9 - Chronic obstructive pulmonary disease, unspecified (ICD-10) Social History Smoking Status: Current some day smoker Second hand tobacco smoke exposure: No How often do you have a drink containing alcohol: never AUDIT-C Alcohol total score: 0 Non-prescribed substance use: denies use Meds Home Medications and Allergies Home Medications ?Medication ?Instructions ?Recorded ?Confirmed ?Type albuterol sulfate 90 mcg/actuation 2 puff inhalation QID PRN dyspnea 10/18/23 03/27/24 History aerosol inhaler budesonide-formoterol HFA 160 2 puff inhalation BID 10/18/23 03/27/24 History mcg-4.5 mcg/actuation aerosol inhaler (Symbicort) gabapentin 300 mg capsule 300 mg PO TID 10/18/23 03/27/24 History mirtazapine 7.5 mg tablet 15 mg PO HS 10/18/23 03/27/24 History tiotropium bromide 18 mcg capsule 1 cap inhalation DAILY 10/18/23 03/27/24 History with inhalation device (Spiriva with HandiHaler) cholecalciferol (vitamin D3) 1,250 1,250 mcg PO .weekly 03/27/24 03/27/24 History mcg (50,000 unit) capsule folic acid 1 mg tablet 1 mg PO DAILY 03/27/24 03/27/24 History methotrexate sodium 2.5 mg tablet 15 mg PO .weekly 03/27/24 03/27/24 History Allergies Allergy/AdvReac Type Severity Reaction Status Date / Time hydrocodone (From Vicodin) Allergy Verified 03/27/24 19:56 Exam Narrative: Exam Narrative: Examined the patient in emergency department. She appears comfortable. No acute distress. Anxious disposition. Does not want to come into hospital. Alert, oriented to self, place, time, situation. Slow to respond to questions. External auditory canals are clear tympanic membranes are normal. Midline nasal septum. No icterus or conjunctival injection. Does have dentures. Has oral thrush with moderate disease burden with multiple lesions greater than 2 mm in size on soft palate and posterior pharynx. Neck supple. Midline trachea. No head neck lymphadenopathy. Decreased breath sounds in lung plummer. End inspiratory rales both bases. No wheezing or rhonchi. Barrel-shaped chest. No CVA tenderness. Regular heart rate and rhythm. No obvious murmur, gallop, or rub. PMI not laterally displaced. Abdomen with active bowel sounds, soft, nontender. Moves all 4 extremities. No focal motor neurologic deficits. Const: Vital Signs, click to edit/add: Vital Signs - 24 hr 03/27/24 19:29 03/27/24 20:06 03/27/24 20:31 Temperature 99.2 F Pulse Rate 110 H 98 Pulse Rate [Pulse Oximeter] 99 Respiratory Rate 20 20 18 Blood Pressure 135/98 H 112/73 Blood Pressure [Le ft Upper Arm] 131/82 Pulse Oximetry 90 89 87 L Oxygen Delivery Me thod Room Air Oxygen Flow Rate 03/27/24 20:45 03/27/24 20:53 03/27/24 21:09 Temperature Pulse Rate 98 100 Pulse Rate [Pulse Oximeter] Respiratory Rate 18 Blood Pressure Blood Pressure [Le ft Upper Arm] Pulse Oximetry 84 L 91 90 Oxygen Delivery Me thod Room Air Nasal Cannula Oxygen Flow Rate 1 03/27/24 21:15 03/27/24 21:22 03/27/24 21:31 Temperature Pulse Rate 101 H 102 H Pulse Rate [Pulse Oximeter] Respiratory Rate 16 Blood Pressure 111/85 Blood Pressure [Le ft Upper Arm] Pulse Oximetry 87 L 90 89 Oxygen Delivery Me thod Nasal Cannula Nasal Cannula Oxygen Flow Rate 1 1 03/27/24 22:01 Temperature Pulse Rate 91 Pulse Rate [Pulse Oximeter] Respiratory Rate 16 Blood Pressure 127/87 Blood Pressure [Le ft Upper Arm] Pulse Oximetry 90 Oxygen Delivery Me thod Nasal Cannula Oxygen Flow Rate 2 Hospitalist - H&P: Result Labs Labs: Short CBC 03/27/24 Range/Units 19:45 WBC 10.94 (4.50-11.00) K/uL Hgb 12.4 (12.0-16.0) gm/dL Hct 40.1 (33.0-51.0) % Plt Count 300 (140-440) K/uL BMP 03/27/24 19:45 Sodium 135 Potassium 3.4 L Chloride 103 Carbon Dioxide 23 BUN 16 Creatinine 0.7 Glucose 110 Calcium 8.7 ECG Attestation: I personally reviewed and interpreted this ECG as follows: ECG interpretation date: 03/27/24 Interpretation: Normal sinus rhythm with first-degree AV block. Pulmonary pattern. Imaging CT scan - neck: Attestation: I have reviewed the pertinent imaging results. Radiologist's impression: FINDINGS: Normal bilateral parotid and submandibular glands. Normal thyroid gland. Scattered small normal-sized cervical lymph nodes bilaterally. No supraclavicular or superior mediastinal adenopathy. Nasopharynx and oropharynx are clear. No inflammation within the parapharyngeal fat pads or retropharyngeal space. Normal thickness of the epiglottis. Normal glottis was symmetric vocal cords. Emphysematous changes in the upper lungs. Normal alignment of the cervical spine. No prevertebral soft tissue swelling. Edentulous mandible and maxilla. Normal articulation at the bilateral temporomandibular joints with moderate degenerative changes. Normal orbits bilaterally. Fluid mucosal thickening of the left sphenoid sinus. Remaining visualized paranasal sinuses mastoid air cells are clear. IMPRESSION: 1. No adenopathy. 2. Normal deep soft tissues of the neck. 3. Emphysematous changes in the upper lungs. 4. Moderate degenerative at the bilateral temporomandibular joints CT scan - chest: Attestation: I have reviewed the pertinent imaging results. Radiologist's impression: FINDINGS: Cardiovascular structures: Normal heart size. The ascending thoracic aorta measures 3.9 cm in AP dimension. The main pulmonary artery is enlarged measuring 3.6 cm which can be seen with pulmonary hypertension. Coronary artery and aortic vascular calcifications. Mediastinum and michael: No pathologically enlarged lymph nodes. No pericardial effusion. Lungs and pleura: Advanced upper lung predominant emphysema. No focal consolidation, pleural effusion, or pneumothorax. Linear atelectasis or scarring in the lung bases. Stable 5 mm noncalcified pulmonary nodule in the posteromedial right upper lobe (series 3, image 31). Stable 3 mm noncalcified pulmonary nodule in the left lower lobe (image 52). No central endobronchial lesion or significant bronchial wall thickening. Chest wall: No mass or adenopathy. Upper abdomen: Residual nephrograms and excreted contrast in the renal collecting systems related to prior CT. Small bilateral renal cysts. There is a 1.3 cm hyperdense lesion arising from the upper pole of the right kidney. Remainder unremarkable. Bones: Mild degenerative changes of the spine. Old bilateral rib fractures. IMPRESSION: 1. Advanced emphysema. No focal lung infiltrates. 2. Stable noncalcified pulmonary nodules measuring up to 5 mm. Please see follow-up guidelines below. 3. Enlarged main pulmonary artery which can be seen with pulmonary hypertension. 4. Small indeterminate hyperdense lesion arising from the right kidney. Recommend further evaluation with nonemergent renal ultrasound. FLE[employer]CH[employer] SOCIETY GUIDELINES - SOLID NODULES: : MULTIPLE LOW RISK - nodule less than 6 mm: No routine follow-up. - nodule 6-8 mm: CT at 3-6 months, then consider CT at 18-24 months. - nodule greater than 8 mm: CT at 3-6 months, then consider CT at 18-24 months. MULTIPLE HIGH RISK - nodule less than 6 mm: Optional CT at 12 months. - nodule 6-8 mm: CT at 3-6 months, then at 18-24 months. - nodule greater than 8 mm: CT at 3-6 months, then at 18-24 months. Assessment and Plan Assessment and plan (1) Chronic hypoxic respiratory failure: Problem comment: - 03/27/24 resting RA SaO2 84% - SaO2 91% on 1 LPM O2 via NC - will assess for need for home O2 - continue to optimize treatment for underlying COPD Status: Acute (2) Emphysema/COPD: Problem comment: - 03/27/24 CT scan of chest: advanced emphysema Status: Acute (3) Tobacco use disorder: Problem comment: - greater than 70 PYH of smoking - 03/27/24: still smokes at times - pre contemplative about quitting smoking Status: Acute (4) Candidiasis of mouth: Problem comment: - Likely in part related to inappropriate use of oral steroid inhaler - Teach appropriate administration of MDI and rinsing of mouth after administration of MDI - moderate disease burden with multiple lesions greater than 2 mm in size - treat with 10 day course of oral fluconazole 100 mg daily - while in hospital, also treat with oral nystatin S/S Status: Acute (5) Pulmonary nodule: Problem comment: - 03/27/24 CT scan of chest: stable noncalcified pulmonary nodules measuring up to [address] follow-up in 12 months Status: Acute (6) Lesion of right [place] kidney: Problem comment: - CT Chest 03/27/24: small indeterminate hyperdense lesion right kidney - recommend further evaluation with non-emergent renal US study. Status: Acute (7) COPD (chronic obstructive pulmonary disease): Problem comment: - Moderately severe, stable - medically modified Status: Acute (8) Rheumatoid arthritis: Problem comment: - 03/27/2024: Patient started methotrexate on 03/25/2024 for treatment of rheumatoid arthritis Status: Acute Plan 1. Reviewed impression and recommendations with patient and daughter in person, and with son from [place] via telephone. 2. Answered their questions to their satisfaction. 3. They are agreeable with above stated plans and recommendations. 4. I did emphasize that patient will need ongoing outpatient assessment and treatments hereafter Total Time Spent Total Time Spent: 70 minutes
[2024-03-27] MEDS: FLUCONAZOLE 100 MG TABLET PO (23:02)
[2024-03-27] MEDS: NYSTATIN 500,000 UNIT/5 ML 500000 UNIT SWISH/SWAL (23:02)
[2024-03-27] MEDS: GABAPENTIN 300 MG CAPSULE PO (23:05)
[2024-03-27] MEDS: MIRTAZAPINE 15 MG TABLET PO (23:05)
[2024-03-28 03:00] VITALS: PULSE 83; RESP 22; TEMP 36.9; O2SAT 91
[2024-03-28 06:18] LABS: HCO3 VBG 27 mmol/L (21-28); PCO2 VBG 44 mmHG (40-50); PO2 VBG 49.8 mmHG (25-47)
--- NOTE | 2024-03-28 06:24 | PC.NURSE ---
pt pleasant and cooperative. calls appropriately. titrated pt from 1L O2 to 0.5L O2 via NC, O2 sats 88-90%. Trialed RA, pt O2 sats 86-87%.
[2024-03-28 07:00] VITALS: BP 115/82; PULSE 81; RESP 18; TEMP 36.7; O2SAT 93
[2024-03-28] MEDS: FOLIC ACID 1 MG TABLET PO (10:45)
[2024-03-28] MEDS: TRIAMCINOLONE ACETONIDE CREAM 0.1 % 1 APPLIC TOPICAL (10:45)
[2024-03-28] MEDS: POTASSIUM CHLORIDE 10 MEQ CAPSULE ER 20 MEQ PO (10:45)
[2024-03-28] MEDS: CLOTRIMAZOLE 1 % CREAM 1 APPLIC TOPICAL (10:45)
[2024-03-28] MEDS: IPRATROPIUM 200 MCG/ML AMPUL.NEB 500 MCG NEB (10:45)
[2024-03-28] MEDS: NYSTATIN 500,000 UNIT/5 ML 500000 UNIT SWISH/SWAL ×2 (10:45→12:31)
[2024-03-28] MEDS: SYMBICORT 160/4.5 INH (10:46)
[2024-03-28] MEDS: SODIUM CHLORIDE 0.9 % (FLUSH) 10 ML SYRINGE 5 ML IVF (10:46)
[2024-03-28 11:13] VITALS: O2SAT 84; O2SAT 90; O2SAT 92
[2024-03-28] MEDS: FLUCONAZOLE 100 MG TABLET PO (12:31)
--- NOTE | 2024-03-28 13:19 | PM.DS1 ---
DS: Providers Provider Date Seen: 03/28/24 Date of admission: 03/27/24 22:02 Primary care physician: Fani Patel MD Admitting Clinician: Xavi Zapata MD Consults: 03/27/24 22:35 Consult to Respiratory Therapy [CONS] Routine Comment: Reason(s) for RT Consult:: Consult Comment: Home O2 assess; teach appropriate MDI administration and rinsing of mouth afterwards 03/27/24 22:51 Consult to Occupational Therapy [CONS] Routine Comment: Reason(s) for OT Consult:: Evaluate and Treat Any Restrictions?:: No Restrictions Comment: assess cognitive status 03/28/24 09:58 Consult to Respiratory Therapy [CONS] Routine Comment: Reason(s) for RT Consult:: Consult Comment: Patient failed 6-minute walk test, patient needs home oxygen. Attending Physician on discharge: Hyun Degroot MD DS: Diagnosis Discharge Diagnosis (1) Candidiasis of mouth: Status: Acute Problem details: - Likely in part related to inappropriate use of oral steroid inhaler - Teach appropriate administration of MDI and rinsing of mouth after administration of MDI - moderate disease burden with multiple lesions greater than 2 mm in size - treat with 10 day course of oral fluconazole 100 mg daily - Also treat with oral nystatin S/S (2) Chronic hypoxic respiratory failure: Status: Chronic Problem details: - patient failed 6 minute walk test on March 28, her O2 sat declined to 77% on exertion. COPD is progressing, patient is an active smoker. Counseled on quitting smoking. - 03/27/24 resting RA SaO2 84% - SaO2 91% on 1 LPM O2 via NC - continue to optimize treatment for underlying COPD -ordered home oxygen as patient failed 6 minute walk test. (3) Emphysema/COPD: Status: Acute Problem details: - 03/27/24 CT scan of chest: advanced emphysema (4) Tobacco use disorder: Status: Acute Problem details: - greater than 70 PYH of smoking - 03/27/24: still smokes at times - pre contemplative about quitting smoking (5) Rheumatoid arthritis: Status: Acute Problem details: - 03/27/2024: Patient started methotrexate on 03/25/2024 for treatment of rheumatoid arthritis (6) COPD (chronic obstructive pulmonary disease): Status: Acute Problem details: - Moderately severe, stable - medically modified (7) Pulmonary nodule: Status: Chronic Problem details: - 03/27/24 CT scan of chest: stable noncalcified pulmonary nodules measuring up to [address] follow-up in 12 months (8) Lesion of right [place] kidney: Status: Chronic Problem details: - CT Chest 03/27/24: small indeterminate hyperdense lesion right kidney - recommend further evaluation with non-emergent renal US study. DS: Summary Hospital Course Hospital Course: Sarah Gutiérrez is a 68 year old woman presents to the emergency department accompanied by her daughter with sore tongue and was found to have oral thrush likely secondary to and correct use of her corticosteroid inhalers. Couple of days ago patient started methotrexate for the 1st time to treat underlying rheumatoid arthritis. Patient was started on fluconazole p.o. and statin solution to treat her oral thrush. She was found to be hypoxic on admission and she failed 6 minute walk test. Patient needs oxygen at home due to progression of her COPD. Patient will be sent home on home oxygen and fluconazole for a total of 10 days treatment. She needs to follow-up with her PCP as an outpatient to follow-up with home oxygen, oral thrush and a 5 mm lung nodule seen at the chest CT this admission. Status at Discharge Functional status at discharge: independent ambulation Overall status at discharge: patient is back to baseline Time Spent with Patient Time attestation: Total time spent providing and/or coordinating discharge services: Time spent: Greater than 30 minutes Exam Narrative: Exam Narrative: Physical exam GENERAL: Comfortable, no acute distress at rest. HEAD AND NECK: Atraumatic, normocephalic CARDIOVASCULAR: RRR. Normal S1, S2. No murmurs. RESPIRATORY: Clear to auscultation B/L. Good air entry B/L. No wheezes or rhonchi. GASTROINTESTINAL: Not distended, not tender to palpation. NEUROLOGY: Alert, awake, oriented X 3. Normal speech. PSYCH: Normal mood, normal affect. Const: Vital Signs, click to edit/add: Vital Signs - 24 hr 03/27/24 19:29 03/27/24 20:06 03/27/24 20:31 Temperature 99.2 F Pulse Rate 110 H 98 Pulse Rate [Pulse Oximeter] 99 Respiratory Rate 20 20 18 Blood Pressure 135/98 H 112/73 Blood Pressure [Le ft Upper Arm] 131/82 Blood Pressure [Ri ght Arm] Pulse Oximetry 90 89 87 L Oxygen Delivery Me thod Room Air Oxygen Flow Rate 03/27/24 20:45 03/27/24 20:53 03/27/24 21:09 Temperature Pulse Rate 98 100 Pulse Rate [Pulse Oximeter] Respiratory Rate 18 Blood Pressure Blood Pressure [Le ft Upper Arm] Blood Pressure [Ri ght Arm] Pulse Oximetry 84 L 91 90 Oxygen Delivery Me thod Room Air Nasal Cannula Oxygen Flow Rate 1 03/27/24 21:15 03/27/24 21:22 03/27/24 21:31 Temperature Pulse Rate 101 H 102 H Pulse Rate [Pulse Oximeter] Respiratory Rate 16 Blood Pressure 111/85 Blood Pressure [Le ft Upper Arm] Blood Pressure [Ri ght Arm] Pulse Oximetry 87 L 90 89 Oxygen Delivery Me thod Nasal Cannula Nasal Cannula Oxygen Flow Rate 1 1 03/27/24 22:01 03/27/24 22:30 03/27/24 22:45 Temperature Pulse Rate 91 Pulse Rate [Pulse Oximeter] 88 Respiratory Rate 16 24 24 Blood Pressure 127/87 Blood Pressure [Le ft Upper Arm] Blood Pressure [Ri ght Arm] 116/86 Pulse Oximetry 90 90 90 Oxygen Delivery Me thod Nasal Cannula Room Air Nasal Cannula Oxygen Flow Rate 2 1 03/27/24 23:00 03/28/24 03:00 03/28/24 07:00 Temperature 98.5 F Pulse Rate Pulse Rate [Pulse Oximeter] 83 81 Respiratory Rate 22 18 Blood Pressure Blood Pressure [Le ft Upper Arm] Blood Pressure [Ri ght Arm] Pulse Oximetry 92 91 Oxygen Delivery Me thod Nasal Cannula Nasal Cannula Oxygen Flow Rate 1 1 03/28/24 07:00 03/28/24 07:00 Temperature 98.0 F Pulse Rate Pulse Rate [Pulse Oximeter] 81 Respiratory Rate 18 18 Blood Pressure Blood Pressure [Le ft Upper Arm] Blood Pressure [Ri ght Arm] 115/82 Pulse Oximetry 93 93 Oxygen Delivery Me thod Room Air Room Air Oxygen Flow Rate DS: Data Data Completed and Pending Labs on day of discharge: Labs from last 24 hours 03/28/24 03/27/24 03/27/24 05:39 21:16 20:59 WBC RBC Hgb Hct MCV MCH MCHC RDW Coeff of Kaitlin Plt Count Neut % (Auto) Lymph % (Auto) [place] % (Auto) Eos % (Auto) Baso % (Auto) Neut # (Auto) Lymph # (Auto) [place] # (Auto) Eos # (Auto) Baso # (Auto) Abs Immat Gran (auto) Imm/Tot Granulo (auto) VBG pH 7.390 7.447 H VBG pCO2 44 34 L VBG pO2 49.8 H 44.9 VBG HCO3 27 23 Sodium Potassium Chloride Carbon Dioxide Anion Gap BUN Creatinine Estimated Creat Clear Estimated GFR Glucose Calcium Magnesium SARS-CoV-2 (PCR) Influenza Type A (PCR) Influenza Type B (PCR) RSV (PCR) Group A Strep DNA Lab Acknowledgement New Spec Needed POC Creatinine POC Troponin I 03/27/24 03/27/24 03/27/24 20:07 19:45 19:40 WBC 10.94 RBC 4.49 Hgb 12.4 Hct 40.1 MCV 89 MCH 28 MCHC 31 L RDW Coeff of Kaitlin 14.5 Plt Count 300 Neut % (Auto) 79.6 H Lymph % (Auto) 14.2 L [place] % (Auto) 4.9 Eos % (Auto) 0.8 Baso % (Auto) 0.4 Neut # (Auto) 8.70 H Lymph # (Auto) 1.60 [place] # (Auto) 0.50 Eos # (Auto) 0.09 Baso # (Auto) 0.04 Abs Immat Gran (auto) 0.01 Imm/Tot Granulo (auto) 0.1 VBG pH VBG pCO2 VBG pO2 VBG HCO3 Sodium 135 Potassium 3.4 L Chloride 103 Carbon Dioxide 23 Anion Gap 9 BUN 16 Creatinine 0.7 Estimated Creat Clear 55.07 Estimated GFR 95 Glucose 110 Calcium 8.7 Magnesium 1.9 SARS-CoV-2 (PCR) Negative SARS-CoV-2 Influenza Type A (PCR) Negative PCR FLU A Influenza Type B (PCR) Negative PCR FLU B RSV (PCR) Negative PCR RSV Group A Strep DNA NOT DETECTED Lab Acknowledgement POC Creatinine 0.7 POC Troponin I 0.[address] scan - chest: Radiologist's impression: CT scan - neck: Attestation: I have reviewed the pertinent imaging results. Radiologist's impression: FINDINGS: Normal bilateral parotid and submandibular glands. Normal thyroid gland. Scattered small normal-sized cervical lymph nodes bilaterally. No supraclavicular or superior mediastinal adenopathy. Nasopharynx and oropharynx are clear. No inflammation within the parapharyngeal fat pads or retropharyngeal space. Normal thickness of the epiglottis. Normal glottis was symmetric vocal cords. Emphysematous changes in the upper lungs. Normal alignment of the cervical spine. No prevertebral soft tissue swelling. Edentulous mandible and maxilla. Normal articulation at the bilateral temporomandibular joints with moderate degenerative changes. Normal orbits bilaterally. Fluid mucosal thickening of the left sphenoid sinus. Remaining visualized paranasal sinuses mastoid air cells are clear. IMPRESSION: 1. No adenopathy. 2. Normal deep soft tissues of the neck. 3. Emphysematous changes in the upper lungs. 4. Moderate degenerative at the bilateral temporomandibular joints CT scan - chest: Attestation: I have reviewed the pertinent imaging results. Radiologist's impression: FINDINGS: Cardiovascular structures: Normal heart size. The ascending thoracic aorta measures 3.9 cm in AP dimension. The main pulmonary artery is enlarged measuring 3.6 cm which can be seen with pulmonary hypertension. Coronary artery and aortic vascular calcifications. Mediastinum and michael: No pathologically enlarged lymph nodes. No pericardial effusion. Lungs and pleura: Advanced upper lung predominant emphysema. No focal consolidation, pleural effusion, or pneumothorax. Linear atelectasis or scarring in the lung bases. Stable 5 mm noncalcified pulmonary nodule in the posteromedial right upper lobe (series 3, image 31). Stable 3 mm noncalcified pulmonary nodule in the left lower lobe (image 52). No central endobronchial lesion or significant bronchial wall thickening. Chest wall: No mass or adenopathy. Upper abdomen: Residual nephrograms and excreted contrast in the renal collecting systems related to prior CT. Small bilateral renal cysts. There is a 1.3 cm hyperdense lesion arising from the upper pole of the right kidney. Remainder unremarkable. Bones: Mild degenerative changes of the spine. Old bilateral rib fractures. IMPRESSION: 1. Advanced emphysema. No focal lung infiltrates. 2. Stable noncalcified pulmonary nodules measuring up to 5 mm. Please see follow-up guidelines below. 3. Enlarged main pulmonary artery which can be seen with pulmonary hypertension. 4. Small indeterminate hyperdense lesion arising from the right kidney. Recommend further evaluation with nonemergent renal ultrasound. FLE[employer]CH[employer] SOCIETY GUIDELINES - SOLID NODULES: : MULTIPLE LOW RISK - nodule less than 6 mm: No routine follow-up. - nodule 6-8 mm: CT at 3-6 months, then consider CT at 18-24 months. - nodule greater than 8 mm: CT at 3-6 months, then consider CT at 18-24 months. MULTIPLE HIGH RISK - nodule less than 6 mm: Optional CT at 12 months. - nodule 6-8 mm: CT at 3-6 months, then at 18-24 months. - nodule greater than 8 mm: CT at 3-6 months, then at 18-24 months. Discharge Plan Discharge Disposition: Home, Self-Care Date of Admission: 03/27/24 22:02 Attending Provider on Discharge: Hyun Degroot Primary Care Provider: Fani Patel I Discharge Medications: New fluconazole [Diflucan] 100 mg Tablet 100 mg PO DAILY 8 Days Qty: 8 0RF nystatin 100,000 unit/mL Suspension 500,000 unit SWISH/SWAL QID 7 Days Qty: 140 0RF Continued methotrexate sodium 2.5 mg tablet 15 mg PO WE@09 folic acid 1 mg tablet 1 mg PO DAILY cholecalciferol (vitamin D3) 1,250 mcg (50,000 unit) capsule 1,250 mcg PO WE@09 gabapentin 300 mg capsule 600 mg PO HS mirtazapine 7.5 mg tablet 15 mg PO HS albuterol sulfate 90 mcg/actuation HFA aerosol inhaler 2 puff INHALATION QID PRN (Reason: dyspnea) tiotropium bromide [Spiriva with HandiHaler] 18 mcg capsule, w/inhalation device 1 cap INHALATION DAILY budesonide-formoterol [Symbicort] 160-4.5 mcg/actuation HFA aerosol inhaler 2 puff INHALATION BID Patient Comments: AND 1-2 PUFFS EVERY 4 HOURS NEEDED Discharge Orders: Discharge Order (Routine); Ordered 03/28/24 Ordered By: Hyun Degroot Patient Education: Nystatin (By mouth), Fluconazole (By mouth), How to Stop Smoking (DC), Pharyngitis (ED), Using Oxygen at Home (DC), How to Use a Metered-Dose Inhaler and a Spacer (DC), How to Use a Breath-Activated Inhaler (DC) Additional Instructions: If your sore throat continues follow-up with your primary care provider. If you do notice worsening shortness of breath or any difficulty breathing return to emergency department immediately for re-evaluation. I also recommend you follow-up with your primary care provider to follow-up on home oxygen use and to f/up on a 5- mm lung nodule seen at the chest CT this admission Activity Level: Activity as Tolerated Discharge Diet: Regular Follow Up Appointments: Fani Patel MD [Primary Care Provider] - 04/06/24 3:35 pm ([facility] for follow up.) Forms: [employer] Info Instructions
--- NOTE | 2024-03-28 14:25 | PC.NURSE ---
Discharge: Patient alert and oriented x4, VSS, on RA when sitting. Patient requires 2 L NC when ambulating. Home O2 order and oxygen tank sent with patient. Education on how to use provided by RN and RT. Patient and daughter verbalized understanding of oxygen use. Patient discharged today at 1415 accompanied by daughter. Discharge instructions signed and patient and daughter verbalized understanding and belongings sheet signed.
== END 2024-03-28 14:15 | disposition home or self-care (01) ==
LOC: ED 21:02 → MEDSURG 22:03
PROVIDERS: Admitting Provider Internal Medicine; Emergency Provider Student in an Organized Health Care Education/Training Program; PCP Family Medicine; Visit Provider Internal Medicine
DX: J96.11 Chronic respiratory failure with hypoxia (principal); J44.9 Chronic obstructive pulmonary disease, unspecified; J02.9 Acute pharyngitis, unspecified; B37.0 Candidal stomatitis; K14.6 Glossodynia; K13.79 Other lesions of oral mucosa; R13.12 Dysphagia, oropharyngeal phase; R68.84 Jaw pain; R21 Rash and other nonspecific skin eruption; T78.40XA Allergy, unspecified, initial encounter; M06.9 Rheumatoid arthritis, unspecified; J43.9 Emphysema, unspecified; R91.1 Solitary pulmonary nodule; N28.9 Disorder of kidney and ureter, unspecified; M79.7 Fibromyalgia; G89.4 Chronic pain syndrome; F17.200 Nicotine dependence, unspecified, uncomplicated; M81.0 Age-related osteoporosis without current pathological fracture; I44.0 Atrioventricular block, first degree; Z87.820 Personal history of traumatic brain injury
CPT/HCPCS: 36415; 70491; 71250; 80048; 82565; 82803; 83735; 84484; 85025; 87631; 87651; 93005; 94640; 94664; 96372; 96374; 97166; 99283; 99285; A9270; G0378; J0171; J2919; J7644; Q9967